=== PATIENT | male | born 1935 | race Caucasian/White ===

== ENCOUNTER 2021-01-09 21:04 | Inpatient (IN) | payer OTHER ==
[~2021-01-09] VITALS: Ht 167.6 cm; Wt 68.2 kg
[2021-01-09 21:07] VITALS: BP 200/82
[2021-01-09] MEDS ORDERED: DONEPEZIL HCL10 M1 PO (21:39)
[2021-01-09] MEDS ORDERED: CLOPIDOGREL75 MG PO (21:39)
[2021-01-09] MEDS ORDERED: ZETIA10 MG PO (21:39)
[2021-01-09] MEDS ORDERED: ROSUVASTATIN CA10 MG PO (21:39)
[2021-01-09] MEDS ORDERED: PROSCAR 5MG TABL5 MG PO (21:40)
[2021-01-09] MEDS ORDERED: ZOLOFT50 M1 PO (21:40)
[2021-01-09] MEDS ORDERED: MEMANTINE HCL10 MG PO (21:40)
[2021-01-09] MEDS ORDERED: OMEPRAZOLE40 MG PO (21:40)
[2021-01-09 21:50] LABS: ABSOLUTE BASOPHILS 0.1 thou/uL (0.0-0.2); ABSOLUTE EOSINOPHILS 0.3 thou/uL (0.0-0.7); ABSOLUTE LYMPHOCYTES 1.2 thou/uL (0.8-5.3); ABSOLUTE MONOCYTES 0.7 thou/uL (0.0-1.2); ABSOLUTE NEUTROPHILS 5.7 thou/uL (1.6-8.1); BASOPHILS 1.1 %; HEMATOCRIT 38.4 % (42.0-52.0); HEMOGLOBIN 13.3 gm/dL (14.0-18.0); LYMPHOCYTES 15.4 %; MCH 30.4 pg (26.0-34.0); MCHC 34.8 g/dL (28.0-37.0); MCV 87.3 fL (80.0-100.0); MONOCYTES 8.2 %; MPV 6.5 fl. (7.2-11.1); NUCLEATED RBCS 0 /100WBC; PLATELET COUNT* 159 thou/uL (150-400); POLYS 71.3 %; RBC 4.39 mil/uL (4.50-6.00); RDW-CV 14.2 % (10.5-14.5); WBC 8.1 thou/uL (4.0-11.0)
[2021-01-09 21:59] LABS: CALCIUM 8.6 mg/dL (8.5-10.1); CREATININE 1.1 mg/dL (0.6-1.3); POTASSIUM 4.3 mmol/L (3.5-5.1)
[2021-01-09 22:05] LABS: APTT 25.6 Seconds (25.0-31.3); PROTIME 10.5 Seconds (9.20-11.50)
[2021-01-09 22:10] LABS: ALBUMIN 3.4 g/dL (3.4-5.0); TOTAL BILIRUBIN 0.7 mg/dL (<0.1-1.0); TOTAL PROTEIN 6.7 g/dL (6.4-8.2)
[2021-01-09 22:35] LABS: URINE BILIRUBIN NEGATIVE (Negative); URINE BLOOD NEGATIVE (Negative); URINE CLARITY CLEAR; URINE COLOR YELLOW; URINE GLUCOSE-RANDOM NEGATIVE (Negative); URINE KETONES NEGATIVE (Negative); URINE LEUKOCYTES-REFLEX NEGATIVE (Negative); URINE NITRITE-REFLEX NEGATIVE (Negative); URINE PROTEIN NEGATIVE (Negative); URINE SPECIFIC GRAVITY <= 1.005 (1.005-1.030); URINE UROBILINOGEN 0.2 E.U./dl (0.2-1.0)
[2021-01-10] VITALS (7 sets, daily range): BP systolic 100–170; BP diastolic 56–78
--- NOTE | 2021-01-10 06:00 | NUR ---
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 HE IS ABLE TO COMMUNICATE HIS NEEDS TO STAFF EFFECTIVELY. HE HAS DENIED THE NEED FOR PAIN MEDICATION UP TO THIS TIME. HE HAS BEEN NPO SINCE ARRIVAL FOR A CARDIOLOGY CONSULT TODAY.
--- NOTE | 2021-01-10 09:54 | EKG ---
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: [place] : 1935 Requested By: Kristine Arango Order Number: [id number] MD: Adrián Loyd Measurements Intervals [place] Rate: 88 P: 19 MA: 197 QRS: -41 QRSD: 110 T: 83 QT: 450 QTc: 545 Interpretive Statements Sinus rhythm left axis Ventricular bigeminy Probable left atrial enlargement Abnormal R-wave progression, early transition LVH with secondary repolarization abnormality No previous ECG available for comparison Electronically Signed On 01-10-2021 9:54:15 CDT by Adrián Loyd [email or web address] <ELECTRONICALLY SIGNED> By: Adrián Loyd MD, FACC 01/10/2154 08 08 Adrián Loyd MD, FAC /EPI
--- NOTE | 2021-01-10 12:37 | 2DMMODE ---
[place] [address] 2 D/M-MODE ECHOCARDIOGRAM Name: DAISY MILIAN Room: [address] M.R.#: [id number] Admission: 01/10/21 Attend Phys: Savi Leiva Discharge: Date of : 33 Date of Service: 01/10/21 1237 Report #: [id number] THIS REPORT FOR: cc: Navid Adams Ghaison F. DO Blick, David R. MD [facility] ~ APPROVED REPORT Study performed: 01/10/2021 10:29:20 EXAM: Comprehensive 2D, Doppler, and color-flow Echocardiogram Patient Location: In-Patient Room #: [facility] Status: routine BSA: 1.77 HR: 47 bpm BP: 170/78 mmHg Rhythm: NSR Other Information Study Quality: Good Indications Abnormal ECG Chest Pain 2D Dimensions IVSd: 10.72 (7-11mm) LVOT Diam: 19.32 (18-24mm) LVDd: 41.99 mm PWd: 14.73 (7-11mm) Ascending Ao: 28.12 (22-36mm) LVDs: 22.13 (25-40mm) Aortic Root: 28.51 mm Volumes Left Atrial Volume (Systole) LA ESV Index: 51.70 mL/m2 Aortic Valve AoV Peak Carlo.: 2.23 m/s AO Peak Gr.: 19.94 mmHg LVOT Max P.09 mmHg AO Mean Gr.: 11.53 mmHg LVOT Mean P.06 mmHg LVOT Max V: 1.01 m/s AO V2 VTI: 54.36 cm LVOT Mean V: 0.66 m/s WINSOME (VTI): 1.42 cm2 LVOT V1 VTI: 26.30 [place] [address] 2 D/M-MODE ECHOCARDIOGRAM Name: DAISY MILIAN Room: [address] M.R.#: [id number] Admission: 01/10/21 Attend Phys: Savi Leiva Discharge: Date of : 33 Date of Service: 01/10/21 1237 Report #: [id number] Mitral Valve MV Mean Gr.: 5.46 mmHg E/A Ratio: 0.61 MV Decel. Time: 499.12 ms MV E Max Carlo.: 1.32 m/s MV PHT: 144.75 ms MVA (PHT): 1.52 cm2 TDI E/Lateral E': 14.67 E/Medial E': 18.86 Medial E' Carlo.: 0.07 m/s Lateral E' Carlo.: 0.09 m/s Pulmonary Valve PV Peak Carlo.: 1.28 m/s PV Peak Gr.: 6.56 mmHg Tricuspid Valve RAP Estimate: 5.00 mmHg TR Peak Gr.: 33.70 mmHg RVSP: 38.00 mmHg PA Pressure: 38.00 mmHg Left Ventricle The left ventricle is normal size. There is normal LV segmental wall motion. Mild concentric left ventricular hypertrophy. Left ventricular systolic function is normal. The left ventricular ejection fraction is within the normal range. LVEF is 60-65%. Grade I - abnormal relaxation pattern. Right Ventricle The right ventricle is normal size. The right ventricular systolic function is normal. Atria Left atrium is severely dilated. The right atrium size is normal. Aortic Valve Bioprosthetic aortic valve is present. No aortic regurgitation is present. Mild aortic stenosis. Mitral Valve Severe mitral annular calcification. Mitral valve leaflets are mildly thickened. Mild mitral regurgitation. Mikl mitral stenosis[place] [address] 2 D/M-MODE ECHOCARDIOGRAM Name: DAISY MILIAN Room: [address]#: [id number] Admission: 01/10/21 Attend Phys: Savi Leiva Discharge: Date of : 33 Date of Service: 01/10/21 1237 Report #: [id number] The tricuspid valve is normal in structure. Mild tricuspid regurgitation. estimated pa pressure 40 mm hg Pulmonic Valve The pulmonary valve is normal in structure. Mild pulmonic regurgitation. Great Vessels The aortic root is normal in size. IVC is normal in size and collapses >50% with inspiration. Pericardium There is no pericardial effusion. <Conclusion> Mild concentric left ventricular hypertrophy. LVEF is 60-65%. Left atrium is severely dilated. Bioprosthetic aortic valve is present. Mild aortic stenosis. Mild mitral regurgitation. Mikl mitral stenosis. Mild tricuspid regurgitation. estimated pa pressure 40 mm hg <ELECTRONICALLY SIGNED> By: Adrián Loyd MD, FACC 01/10/21 1237 1237 1237 Adrián Loyd MD, FACC /INF
--- NOTE | 2021-01-10 13:37 | NUR ---
ASSUMED CARE OF PT AT 0730. PT A&0X4, FORGETFUL AT TIMES. DENIES ANY PAIN OR SHORTNESS OF BREATH AT THIS TIME. PT TRACING TRIGEMINY/SR PVC'S ON THE SYSTEMS TEST TECHNICIAN. ON RA SAT UPPER 90'S. IVF. CARDIO CONSULT IN PLACE. PT REMAINS NPO. PT UP SBA TO BATHROOM. AM ASSESSMENT CHARTED. MEDICATIONS PER MAR. PT REPOSITIONS SELF. HOURLY ROUNDING OBSERVED. BED IN LOW POSITION. CALL LIGHT WITHIN REACH. WILL CONTINUE PLAN OF CARE.
--- NOTE | 2021-01-10 15:22 | NUR ---
Case and plan of care reviewed with physician each weekday during patient's length of stay. Plan is for .. SPOKE WITH PATIENT'S AND SHE REFUSED TO ANSWER ANY QUESTION REGUARDING CARE, STATED SHE DIDN'T FEEL COMFORTABLE ANSWERING QUESTIONS PATIENT PRESENTS C/O WEAKNESS, FATIGUE, AND TREMORS THAT ARE NEW.
[2021-01-11] VITALS (7 sets, daily range): BP systolic 115–166; BP diastolic 47–97
[2021-01-11 04:30] LABS: HEMATOCRIT 38.5 % (42.0-52.0); HEMOGLOBIN 13.5 gm/dL (14.0-18.0); MCH 30.2 pg (26.0-34.0); MCHC 34.9 g/dL (28.0-37.0); MCV 86.5 fL (80.0-100.0); MPV 6.9 fl. (7.2-11.1); RBC 4.46 mil/uL (4.50-6.00); RDW-CV 14.3 % (10.5-14.5); WBC 9.3 thou/uL (4.0-11.0)
[2021-01-11 05:26] LABS: ALBUMIN 3.3 g/dL (3.4-5.0); ALKALINE PHOSPHATASE 72 U/L (46-116); ANION GAP 5 mmol/L (7-16); BUN 20 mg/dL (7-18); CALCIUM 8.6 mg/dL (8.5-10.1); CHLORIDE 104 mmol/L (98-107); CO2 28 mmol/L (21-32); CREATININE 1.1 mg/dL (0.6-1.3); GLUCOSE 84 mg/dL (70-99); POTASSIUM 4.2 mmol/L (3.5-5.1); SGOT 16 U/L (15-37); SGPT 18 U/L (30-65); SODIUM 137 mmol/L (136-145); TOTAL BILIRUBIN 0.9 mg/dL (<0.1-1.0); TOTAL PROTEIN 6.7 g/dL (6.4-8.2)
--- NOTE | 2021-01-11 05:48 | NUR ---
PT IS ABLE TO COMMUNICATE HIS NEEDS TO STAFF EFFECTIVELY. HE HAS DENIED THE NEED FOR PAIN MEDICATION UP TO THIS TIME. POSSIBLE DISCHARGE TODAY. CARDIOLOGY FOLLOWING.
[2021-01-11 08:19] LABS: MAGNESIUM 2.2 mg/dL (1.8-2.4)
--- NOTE | 2021-01-11 10:03 | CON ---
[address] [address] CONSULTATION Name: DAISY MILIAN Room: [address] Jorge Cornell#: [id number] Admission: 01/10/21 Attend Phys: Lisa Degroot Discharge: Date of : 33 Report #: [id number] THIS REPORT FOR: cc: Navid Adams,Adrián Lee MD [facility] ~ cc: Navid Adams DO DATE OF CONSULTATION: 01/10/2021 CARDIOLOGY CONSULTATION PRIMARY CARE PHYSICIAN: Navid Adams DO HISTORY OF PRESENT ILLNESS: The patient is an 85-year-old white male who I was asked to see in the hospital today after he was noted to have PVCs. Unfortunately, no old records available. The patient has never been here to [facility]. The history is obtained from the patient's who was present. About 10 years ago, he was noted to have a heart murmur. 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 He used to be followed by a content administrator. He did not require a bypass surgery. He is not very active because of his age. Recently, he has felt lightheaded, weak and dizzy. He denied any chest pain, shortness of breath, palpitations, edema, syncope. He apparently saw a content administrator in [place], [place], who told him he had skipped beats, but recommended no further evaluation. He recently moved with his from [place], [place] to [place]. There, he was seen by Dr. Adams for primary care. Dr. Adams recommended a monitoring analyst. Yesterday, he went to [place] and had a monitor applied. After the monitor was applied, his hands were shaking. They finally called the ambulance and he was brought here to [facility] yesterday. They took the monitor off. His tremor resolved. Cardiology consultation is requested. PAST MEDICAL HISTORY: He has had previous cholecystectomy, cataract extraction. He has had eye surgery. He has macular degeneration. There is no history of hypertension, diabetes. He does have a history of hyperlipidemia. He has a history of prostatism. CURRENT MEDICATIONS: Consist of Plavix, which he recently was started on; donepezil for memory loss; Zetia for high cholesterol; Proscar; Namenda; omeprazole; Crestor; Zoloft. ALLERGIES: He has no known drug allergies. FAMILY HISTORY: [place] [address] CONSULTATION Name: DAISY MILIAN Room: [address] Jorge Cornell#: [id number] Admission: 01/10/21 Attend Phys: Lisa Degroot Discharge: Date of : 33 Report #: [id number] SOCIAL HISTORY: He is . He and his live now in [place], [place]. He quit smoking tobacco years ago. No alcohol abuse. REVIEW OF SYSTEMS: He apparently had a small stroke years ago. No history of asthma, liver disease, kidney disease, cancer, psychiatric illness, chronic skin condition. PHYSICAL EXAMINATION: GENERAL: Revealed an elderly male, lying in bed, he appeared in no acute distress. VITAL SIGNS: He had a blood pressure of 130/60, pulse 60, he was afebrile. HEENT: He was anicteric. Conjunctivae pink. Mucosa moist. NECK: Veins were not distended. Radiating systolic murmur was noted in the carotids. Neck was supple. CHEST: Clear to auscultation. CARDIAC: Regular rate and rhythm. There was a grade 2 systolic ejection murmur at left sternal border. ABDOMEN: Soft. EXTREMITIES: Had no pitting edema. Dorsalis pedis pulse 2+ bilaterally. SKIN: Cool and dry. NEUROLOGIC: Nonfocal. DIAGNOSTIC DATA: ECG showed a sinus rhythm with PVCs in a pattern of bigeminy. There was a left axis deviation, septal Q-waves. His workup in the Emergency Room last night, he had a portable chest x-ray that showed evidence of previous sternotomy, otherwise, clear lung sylvester. On the monitor last night, the patient remained in sinus rhythm with frequent PVCs including ventricular couplets and ventricular bigeminy. LABORATORY WORK: Potassium is 4.3, creatinine 1.1. The remaining lab work showed normal liver function studies. His BNP 592. High-sensitivity troponin was 23. White blood cell count 8.1, hematocrit 38.4. His COVID antigen stat test was negative. Urinalysis was negative for protein. IMPRESSION AND RECOMMENDATIONS: 1. Premature ventricular contractions. I would not treat at this time. The patient has a monitoring analyst in place. 2. Previous aortic valve replacement. The patient had an echocardiogram in the hospital today that shows normal functioning of the tissue aortic valve with normal left ventricular function. Recommend subacute bacterial endocarditis prophylaxis. 3. History of tremors. Rule out Parkinson's. Next week, I would check thyroid function studies. 4. [place] [address] CONSULTATION Name: DAISY MILIAN Room: [address] AndresR.#: [id number] Admission: 01/10/21 Attend Phys: Lisa Degroot Discharge: Date of : 33 Report #: [id number] 5. Short-term memory loss. Possible dementia. 6. Macular degeneration. 7. Previous history of a stroke. <ELECTRONICALLY SIGNED> By: Adrián Loyd MD, FACC 01/11/21 1003 1302 [id number] Loyd MD, FACC /nt
[2021-01-11 13:02] LABS: CHOLESTEROL 121 mg/dL (<200); HDL CHOLESTEROL 47 mg/dL (>40); LDL CHOLESTEROL 54 mg/dL (<100); TC:HDL 2.6 Ratio (Not establshd); TRIGLYCERIDE 103 mg/dL (<150); VLDL 21 mg/dL (<40)
[2021-01-11 13:09] LABS: SERUM ASSESSMENT Clear
[2021-01-12] VITALS: BP 138/68
[2021-01-12 04:00] VITALS: BP 156/69
[2021-01-12 08:00] VITALS: BP 105/57
[2021-01-12 16:00] VITALS: BP 115/61
[2021-01-12 20:00] VITALS: BP 163/65
[2021-01-13] VITALS: BP 178/43
--- NOTE | 2021-01-13 02:33 | NUR ---
PT ALERT ORIENTED. UP AD RUSS. NPO SINCE [place] FOR CARDIAC STRESS TEST. QUARTER SECTION IRONER TRACING SB 1ST DEGREE AVB.
[2021-01-13 04:00] VITALS: BP 138/53
[2021-01-13 11:32] VITALS: BP 111/48
[2021-01-13 14:13] VITALS: BP 155/51
--- NOTE | 2021-01-13 16:04 | NUR ---
CM COMPLETED AN ASSESSMENT WITH THE PT AND HIS AT BEDSIDE. PT PRESENTED FRUSTRATED AND THREATEN SEVERAL TIMES TO LEAVE WITH HIS WITHIN THE NEXT 10 MIN BECASUE HE "WAS SUPPOSED TO LEAVE AT ONE OCLOCK." PT CONTINUOUSLY TRIED TO ENCOURAGE PT TO REMAIN CALM. PT LIVES AT HOME WITH HIS IN [place]. PT STATED "OUR KIDS MADE US MOVE UP HERE TO BE CLOSER TO THEM." PT IS INDEPENDENT WITH CARE. PT HAS NO DMES. PT DECLINES HH. SW OFFER TO ASSIST SETTING OUTPT SELP STUDY. PT ADAMANTLY DECLINED AND STATED HE WAS DOING ANYTHING UNTIL HE GETS RESULTS FROM STRESS TEST AND CONTINUE TO RANT ABOUT LEAVING AMA.
--- NOTE | 2021-01-13 16:45 | CARDNUC ---
[place] [address] CARDIAC NUCLEAR IMAGING REPORT Name: DAISY MILIAN Room: [address] IN [facility]#: [id number] Admission: 01/12/21 Attend Phys: Savi Leiva Discharge: Date of : 33 Date of Service: 01/13/21 1644 Report #: [id number] THIS REPORT FOR: cc: Navid Adams Ghaison F. DO Liston, Michael J. MD [facility] ~ APPROVED REPORT Imaging Protocol: Stress Tc-99m/Rest Tc-99m 1 day Study performed: 01/12/2021 17:02:00 Indication: tremors Patient Location: In-Patient Room #: 116 Stress Nurse: Charity Paredes RN Ht: 5 ft 6 in Wt: 150 lbs BSA: 1.77 m2 BMI: 24.20 Medical History Medical History: Hyperlipidemia, Valvular heart disease Medications: zetia, losartan, metoprolol,atorvastatin Allergies: No known drug allergies Cardiac Risk Factors: Age, Hyperlipidemia Previous Cardiac Procedures: mitral valve replacement Exercise History: Sedentary Meds Held (24 hrs): metoprolol Resting Data Rest SPECT myocardial perfusion imaging was performed in supine position 30 minutes following the intravenous injection of 8.6 mCi of Tc-99m Sestamibi. Time of rest injection: 08:40 The images were gated to evaluate regional wall motion and calculate left ventricular ejection fraction. Administration Route: IV Administration Site: Left AC Pharmacologic Stress Pharmacologic stress test was performed by injecting Regadenoson 0.4 mg IV push over 10-15 seconds immediately followed by the intravenous injection of 30.7 mCi of Tc-99m Sestamibi. Time of stress injection: 09:55 Administration Route: [place] [address] CARDIAC NUCLEAR IMAGING REPORT Name: DAISY MILIAN Room: [address] [place] M.R.#: [id number] Admission: 01/12/21 Attend Phys: Savi Leiva Discharge: Date of : 33 Date of Service: 01/13/21 1644 Report #: [id number] Heart Rate at time of stress injection: 72 bpm. Gated Stress SPECT was performed 45 minutes after stress injection. The images were gated to evaluate regional wall motion and calculate left ventricular ejection fraction. Stress Test Details Stress Test: Pharmacologic stress testing performed using 0.4 mg of regadenoson per 5 mL given IV over 10 seconds. Reason for pharmacologic stress test: generalized weakness. 60 mg caffeine given for vomiting. HR Max Heart Rate (APMHR): 134 bpm Resting HR: 66 bpm Target HR (85% APMHR): 113 bpm Max HR Achieved: 119 bpm % of APMHR: 88 Recovery HR: 67 bpm BP Resting BP: 142/81 mmHg Max BP: 220/65 mmHg Recovery BP: 112/84 mmHg ECG Resting ECG: Sinus rhythm with unifocal premature ventricular contractions in a pattern of bigeminy. Stress ECG: Sinus rhythm with unifocal premature ventricular contractions in a pattern of bigeminy. ST Change: None Recovery ECG: Sinus rhythm with unifocal premature ventricular contractions in a pattern of bigeminy. Recovery ST Change: None Clinical Reason for Termination: Completed protocol The patient tolerated Lexiscan infusion without cardiac symptoms. Nurse Comments 60 mg caffeine given for vomitin. Symptoms resolved Stress ECG Conclusion Baseline twelve-lead EKG shows sinus rhythm with unifocal premature ventricular contractions in a pattern of bigeminy. EKGs obtained during and post Lexiscan infusion show sinus rhythm with continued unifocal premature ventricular contractions in a pattern of bigeminy. No significant [place] [address] CARDIAC NUCLEAR IMAGING REPORT Name: DAISY MILIAN Room: [address]#: [id number] Admission: 01/12/21 Attend Phys: Savi Leiva Discharge: Date of : 33 Date of Service: 01/13/21 1644 Report #: [id number] Study Quality Study: Good Artifact: Mild Diaphragmatic artifact Study Data At rest, the left ventricular ejection fraction was 66%.. Post stress, the left ventricular ejection was 70%.. TID = 1.05. Perfusion Perfusion images obtained at rest and post Lexiscan stress show a moderate region of mild photopenia involving the inferior wall consistent with diaphragmatic attenuation. Wall motion in this region is normal. No other significant fixed or reversible defects are identified. Wall Motion There is a septal wall motion abnormality noted consistent with prior open heart procedure. Global LV systolic function is normal. Nuclear Conclusion ECG Findings: negative for ischemia Clinical Findings: negative for ischemia Nuclear Findings: negative for ischemia Exercise Capacity: not assessed Left Ventricular Function: Preserved Risk Study: low Perfusion studies show an inferior defect consistent with diaphragmatic attenuation artifact. No other significant fixed or reversible defects are identified. Global LV systolic function is preserved. This is a low risk study. <Conclusion> Baseline twelve-lead EKG shows sinus rhythm with unifocal premature ventricular contractions in a pattern of bigeminy. EKGs obtained during and post Lexiscan infusion show sinus rhythm with continued unifocal premature ventricular contractions in a pattern of bigeminy. No significant ST segment changes were noted. <ELECTRONICALLY SIGNED> By: Harish Vargas MD, FACC 01/13/21 1644 43 43 Harish Vargas MD, FACC /INF
[2021-01-13 17:19] VITALS: BP 155/51
[2021-01-13] MEDS ORDERED: COZAAR 25 MG TA25 M1 PO (18:47)
== END 2021-01-13 17:50 | disposition home or self-care (01) | DRG 310 ==
LOC: M.ERS 21:04 → M.TBA-ER 01-10 00:24 → M.ORTHSURG 01-10 00:24
PROVIDERS: Internal Medicine; Personal Emergency Response Attendant; ADMIT Internal Medicine; ATTEND Internal Medicine
DX: I49.3 Ventricular premature depolarization (principal); R00.8 Other abnormalities of heart beat; F41.0 Panic disorder [episodic paroxysmal anxiety]; Z20.822 Contact with and (suspected) exposure to COVID-19; E78.5 Hyperlipidemia, unspecified; R41.3 Other amnesia; H35.30 Unspecified macular degeneration; R25.1 Tremor, unspecified; F03.90 Unspecified dementia, unspecified severity, without behavioral disturbance, psychotic disturbance, mood disturbance, and anxiety; Z95.2 Presence of prosthetic heart valve; Z90.49 Acquired absence of other specified parts of digestive tract; Z98.49 Cataract extraction status, unspecified eye